=== PATIENT | female | born 1930 | race Caucasian/White ===

== ENCOUNTER 2016-10-10 13:21 | Inpatient (IN) ==
[2016-10-10] MEDS ORDERED: ONDANSETRON 4 MG/2 ML VIAL IV PRN (13:39)
[2016-10-10] MEDS ORDERED: HYDROmorphone 2 MG/1 ML VIAL IV PRN (13:39)
--- NOTE | 2016-10-10 13:49 | Emergency Department Note ---
Emerson Arguelles Gwan, am scribing for, and in the presence of, Jewel Vickers MD 13:42 . Alee Arguelles James D, MD, personally performed the services described in this documentation, ascribed by Penny Norman in my presence, and it is both accurate and complete 348 . 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 States she tripped while walking across the road. Obvious shortening/ rotation noted to left leg. PMS intact. Mode of Arrival: Stretcher Limitations: No Limitations Source: Patient, Family, Old Records Reviewed, RN Notes Reviewed Time Seen by Provider: 10/10/16 13:35 - History of Present Illness HPI Narrative: Patient is a 86 y/o white female, with a hx of dementia, who presents to the ED via EMS with a c/o left hip pain s/p fall today. Family stated that pt went across the street to pick a flower when she slipped and fell. Nurses noted that pt has obvious shortening/rotation of left leg. Patient confirmed that she has pain in her left hip but denies any chest pain, syncope or LOC. While in ED , pt stated that she also has some back pain. Onset (ago): hour(s) Consistency: constant Severity: moderate Date of Last Menstrual Period: hysterectomy Allergies/Adverse Reactions: Allergies Allergy/AdvReac Type Severity Reaction Status Date / Time No Known Allergies Allergy Verified 10/10/16 13:33 Home Medications: Home Medications Medication Instructions Recorded Confirmed Type Aspirin EC Tab 81 mg PO DAILY 10/10/16 10/10/16 History Atenolol [Tenormin] 25 mg PO DAILY 10/10/16 10/10/16 History Memantine [Namenda] 10 mg PO BID 10/10/16 10/10/16 History NIFEdipine [Nifedipine ER] 30 mg PO DAILY 10/10/16 10/10/16 History Pantoprazole Tab [Protonix Tab] 40 mg PO DAILY 10/10/16 10/10/16 History Review of System - Review of System 12 point system: reviewed and no additional remarkable complaints except as stated - Review of System Constitutional: Absent: chills, fever Eyes: Absent: discharge, pain Head/Ears/Nose/Throat: Absent: earache, epistaxis Respiratory: Absent: cough, respiratory distress Cardiovascular: Absent: chest pain, palpitations Musculoskeletal: Present: as per HPI, back pain, other (left hip pain). Absent : arm pain Medical,Surgical,& Family Hx - Medical History Cardio: History of: Hypertension Neurology: History of: Dementia Respiratory: History of: COPD Gastrointestinal: History of: GERD - Surgical History Reproductive Surgeries: Surgical HX of;: Hysterectomy - Social History Smoking Status: Never smoker Frequency of Alcohol Use: None Type of Drug Use: None Exam Physical Examination: GENERAL: This is a white female in no apparent distress. VITAL SIGNS: HEENT: Head is normocephalic and atraumatic. Pupils are equally round and reactive to light. Extraocular movement are intact. Oropharynx is benign with moist mucous membranes. NECK: Neck is soft and supple without tenderness. There are no masses. There is no lymphadenopathy. LUNGS: Lungs are clear to auscultation bilaterally. Chest rises symmetrically. There is no chest wall tenderness. CV: Heart is regular rate and rhythm without murmurs, rubs, or gallops. ABDOMEN: Abdomen is soft, non-tender to palpation. There are no abnormal masses palpated. There is no organomegaly. Bowel sounds are present and active. Shortening and obvious rotation of left hip. SKIN: Skin is warm and dry. No rash. EXTREMITIES: Patient has full range of motion without tenderness. There is no pedal edema. NEUROLOGIC: Awake, alert, and oriented x4. Cranial nerves II through XII are grossly intact. There are no motorsensory deficits. PSYCHIATRIC: Normal affect. Normal mood. Vital Signs: Vital Signs Temperature 98.6 F 10/10/16 13:29 Pulse Rate 76 10/10/16 13:29 Respiratory Rate 18 10/10/16 13:29 Blood Pressure 110/66 10/10/16 13:29 O2 Sat by Pulse Oximetry 93 L 10/10/16 13:29 Course - Consultations Consultation #1: Discussed with Dr. Bennett. Time: 14:14 Consultation #2: Discussed with hospitalist. Patient will be admitted to their service. Time: 14:14 Results - Labs CBC & BMP: 10/10/16 13:50 10/10/16 13:50 Lab Results: I have reviewed the patients labs - EKG EKG results: interpreted by ERMD - Impressions EKG: Normal sinus rhythm with rate of 75, first-degree AV block, right bundle branch block, left anterior fascicular block. - Diagnostic Findings Procedure: Chest x-ray: image reviewed by me (No infiltrates, no pleural effusions.), X-ray: image reviewed by me (Left hip x-ray: Left subcapital femoral neck fracture.) Disposition Clinical Impression: Alzheimer's type dementia, Subcapital fracture of neck of left femur, UTI ( urinary tract infection) Case discussed with: patient, patient's family Disposition: Still a Patient Condition: Stable Time of Disposition: 14:16
[2016-10-10 13:58] LABS: Basophils % 0.3 % (0.0-0.8); Eosinophils # 0.1 10*3/uL (0.0-0.87); Eosinophils % 1.9 % (0.00-10.9); Hematocrit 35.8 VOL% (35.7-47.0); Hemoglobin 12.4 GM/DL (12.0-16.0); Immature Granulocytes % 0.6 %; Immature Granulocytes Absolute 0.04 #; Lymphocytes % 30.1 % (21.3-54.2); Mean Corpuscular HGB Conc 34.6 GM/DL (32-36); Mean Corpuscular Hemoglobin 32 PG (27-34); Mean Corpuscular Volume 93.2 FL (87-102); Mean Platelet Volume 11.1 FL (9.6-12.0); Monocytes # 0.6 10*3/uL (0.11-0.8); Monocytes % 9.7 % (1.7-12.7); Neutrophils # 3.7 10*3/uL (1.4-7.4); Neutrophils % 57.4 % (38.7-73.9); Platelet Count 157 T/CUMM (130-400); Red Blood Count 3.84 MC/CUMM (3.8-5.5); Red Cell Distribution Width 12.7 % (9.3-17.3); White Blood Count 6.5 T/CUMM (4-12)
[2016-10-10 14:06] LABS: Apearance,Urine CLOUDY (Clear); Bilirubin,Urine Negative (Negative); Blood, Urine Small mg/dL (Negative); Glucose,Urine (UA) Negative (Negative); Ketones,Urine Negative (Negative); Mucus,Urine Occasional /LPF (Occasional); Nitrite,Urine Positive (Negative); Protein,Urine 30 MG/DL; RBC,Urine 15 /HPF (0-4); Squamous Epithelial Cell,Urine Occasional /HPF (0-10); Urine Color Yellow (Yellow); Urine Specific Gravity 1.009 (1.001-1.035); Urine Urobilinogen < 2.0 EU/DL (0.2-1.0); WBC,Urine 941 /HPF (0-6)
[2016-10-10 14:07] LABS: PT Patient Result 10.6 SECS; Partial Thromboplastin Time 23.5 SECS (0-40)
--- NOTE | 2016-10-10 14:16 | XRay Report ---
History short of breath Comparison 06/07/2012 The heart is at the upper range normal in size Tiny left base granuloma suspected There is minimal chronic elevation left diaphragm. No congestive failure or confluent infiltrates seen Impression: Stable portable chest PROCEDURE INTERPRETED AT [facility] DEPARTMENT OF RADIOLOGY Final Report Signed by: Dr. Ailyn Cruz
--- NOTE | 2016-10-10 14:19 | XRay Report ---
History is left hip injury and pain AP pelvis and 2 additional views of the left hip obtained There is diffuse demineralization with mild degenerative changes in both hips There is a left femoral neck fracture with superior lateral displacement of the distal fragment proximally 2 cm. Impression: Left femoral neck fracture PROCEDURE INTERPRETED AT [facility] DEPARTMENT OF RADIOLOGY Final Report Signed by: Dr. Ailyn Cruz
[2016-10-10 14:21] LABS: Albumin 3.9 G/DL (3.4-5.0); Bilirubin,Total 0.4 MG/DL (0.2-1.0); Calcium 8.9 MG/DL (8.5-10.1); Osmolality,Calculated 280.4 MOS/KG (273-304); Potassium 4.2 MMOL/L (3.5-5.1); Total Protein 7.2 G/DL (6.4-8.3)
[2016-10-10] MEDS ORDERED: ONDANSETRON 4 MG/2 ML VIAL ONE (14:21)
[2016-10-10] MEDS ORDERED: HYDROmorphone 2 MG/1 ML VIAL ONE (14:22)
--- NOTE | 2016-10-10 14:36 | CT Report ---
History is low back pain status post fall Axial images obtained with 2-D multiplanar reconstruction images also stored and interpreted There are atherosclerotic changes in the abdominal aorta. A 2 cm liver cyst partially visualized There is grade 1/2 spondylolisthesis L4 on L5 with prominent chronic facet changes at this level There are mild degenerative changes throughout the lumbar spine. Disc space height loss and endplate changes are most pronounced at L2-3 No acute lumbar spine fracture is seen. T11-T12 has a diffuse bulge more pronounced far laterally worse on the right. L1 S2 has a mild left lateral bulge L2-3 has a lateral bulge more pronounced in the left surrounded by osteophyte. L3-4 is a diffuse bulge more pronounced far laterally in the right with at least moderate canal and moderate bilateral foraminal stenosis L4-5, there is a diffuse bulge with a suspected more focal broad-based left lateral through far left lateral protrusion. There is facet hypertrophy with severe central canal and moderate left greater than right foraminal stenosis L5-S1 has a mild bulge and facet arthropathy with mild canal and mild bilateral foraminal stenosis Impression: 1. Grade 1-2 spondylolisthesis at L4-5 with chronic facet changes at this level 2. Broad-based left lateral protrusion at L4-5 with severe canal and left foraminal stenosis 3. Other lumbar spondylosis and disc disease with moderate stenoses detailed above The CT exam was performed using one or more of the following dose reduction techniques: Automated exposure control, adjustment of the mA and/or kV according to patient size, or use of iterative reconstruction technique. PROCEDURE INTERPRETED AT [facility] DEPARTMENT OF RADIOLOGY Final Report Signed by: Dr. Ailyn Cruz
--- NOTE | 2016-10-10 14:47 | EKG Report ---
Stationary ECG Study [facility] ER Test Date: 10/10/2016 2:47:31 PM Pat Name: JOYCELYN URBINA Department: Room: Gender: F Supervisor Electronic Testing: : 1930 Requested by: Jewel Curtis Order Number: [id number] Reading MD: DANIS RODRÍGUEZ Intervals Ray Rate: 75 P: 60 DC: 236 QRS: -60 QRSD: 141 T: -3 QT: 432 QTc: 460 Interpretive Statements SINUS RHYTHM WITH PROLONGED DC INTERVAL RIGHT BUNDLE BRANCH BLOCK LEFT ANTERIOR FASCICULAR BLOCK Electronically Signed On 10-14-16 15:28:10 CDT by DANIS RODRÍGUEZ [email or web address]
[2016-10-10] MEDS ORDERED: cefTRIAXone 1,000 MG in SODIUM CHLORIDE 0.9% 100 ML IV STA (15:42)
--- NOTE | 2016-10-10 16:16 | Hospitalist History & Physical ---
<Alvin Thompson - Last Filed: 10/10/16 16:48> Assessment and Plan (1) Alzheimer's type dementia Status: Chronic Assessment and plan: Restart patient's home medications. Current Visit: Yes (2) Subcapital fracture of neck of left femur Status: Acute Assessment and plan: Admit as inpatient. Consult surgery to evaluate. Hold patient NPO. Current Visit: Yes (3) UTI (urinary tract infection) Status: Acute Assessment and plan: IV fluid hydration. Start patient on IV antibiotics empiricially. Obtain urine culture. Current Visit: Yes History of Present Illness Chief complaint: fall History of present illness: Ms. Garcia is a 86 year old white female with a history of hypertension, gerd, dementia, COPD, hysterectomy, gall bladder removal that presented to the ED today for evaluation after a fall. The patient is accompanied by her step daughter who provides the history due to the patient's mental status. The patient was walking across the street to pick a flower but slipped and fell on the gravel in the area. Pt. was unable to get up and was down for about 30 minutes before her found her, per step daughter. Pt. was brought into the ED and xray showed left femoral neck fracture. Pt. also found to have a UTI. Pt. will be admitted to the hospitalist service for further evaluation and treatment. Home Medications Medication Instructions Recorded Confirmed Type Aspirin EC Tab 81 mg PO DAILY 10/10/16 10/10/16 History Atenolol [Tenormin] 25 mg PO DAILY 10/10/16 10/10/16 History Memantine [Namenda] 10 mg PO BID 10/10/16 10/10/16 History NIFEdipine [Nifedipine ER] 30 mg PO DAILY 10/10/16 10/10/16 History Pantoprazole Tab [Protonix Tab] 40 mg PO DAILY 10/10/16 10/10/16 History Allergies Allergy/AdvReac Type Severity Reaction Status Date / Time No Known Allergies Allergy Verified 10/10/16 13:33 Medical,Surgical,& Family Hx - Medical History Cardio: History of: Hypertension Neurology: History of: Dementia Respiratory: History of: COPD Gastrointestinal: History of: GERD - Surgical History Reproductive Surgeries: Surgical HX of;: Hysterectomy - Social History Smoking Status: Never smoker Frequency of Alcohol Use: None Type of Drug Use: None Marital Status: Lives With:: Spouse Functional capacity: independent ambulation ROS unobtainable: due to mental status Exam - Constitutional Vitals: Period Temp Pulse Resp BP Sys/Brito Pulse Ox Last 24 Hr 98.6 F-98.6 F 76-76 18-18 110-110/66-66 93 General appearance: no acute distress, disheveled - Head Head exam: Present: normal inspection, normocephalic - Eye Eye exam: Present: EOMI. Absent: scleral icterus Pupils: Present: RITU. Absent: fixed - Neck Neck exam: Present: normal inspection - Respiratory Respiratory exam: Present: clear to auscultation bilaterally. Absent: wheezes - Cardiovascular Cardiovascular exam: Present: regular rate and rhythm - GI/Abdominal GI/Abdominal exam: Present: normal bowel sounds, soft. Absent: tenderness - Extremities Exam Extremities exam: Present: normal capillary refill, edema. Absent: full ROM - Expanded Left Lower Hip exam: Present: tenderness. Absent: full ROM, external rotation - Neurological Exam Neurological exam: Present: alert, altered - Psychiatric Psychiatric exam: Present: normal affect, normal mood - Skin Skin exam: Present: normal color, warm, dry Results - Labs CBC & BMP: 10/10/16 13:50 10/10/16 13:50 Lab Results: I have reviewed the past 24 hour labs <Bennie Post - Last Filed: 10/13/16 18:44> History of Present Illness History of present illness: Ms. Garcia was found to have a left femur fracture. I, agree with the assessment and plan. I, personally, saw the patient. -Bennie Post MD Exam - Constitutional Vitals: Period Temp Pulse Resp BP Sys/Brito Pulse Ox Last 24 Hr 96.9 F-98.4 F 76-79 16-20 113-152/54-78 94-99 Results - Labs CBC & BMP: 10/13/16 02:43 10/13/16 02:43
[2016-10-10] MEDS ORDERED: ACETAMINOPHEN 325 MG TABLET PO PRN (16:39)
[2016-10-10] MEDS ORDERED: VANCOMYCIN INJ 1,000 MG in SODIUM CHLORIDE 0.9% 250 ML IV ONE (16:45)
[2016-10-10] MEDS ORDERED: MORPHINE 2 MG/1 ML SYRINGE IV ONE (17:29)
[2016-10-10] MEDS ORDERED: MORPHINE 2 MG/1 ML SYRINGE IV PRN (17:32)
--- NOTE | 2016-10-10 17:39 | Orthopedic Consult Note ---
History of Present Illness Chief complaint: Left hip pain History of present illness: Ms. Garcia is a 86 year old female who fell about 11 AM this morning. She crossed the street to pick [employer]. She has not had any prior left hip problems. She denies any other injury. The patient lives at home with her . She generally tends to walk independently and does not use her walker. She has Alzheimer's and the daughter notes that she has had progressive decline over the last 7-8 years. She has been found to have a UTI and Rocephin has been started. Alert. She is very uncomfortable from the hip. She is easily consoled. C-spine nontender. Bilateral upper extremities, right lower extremity without deformity. Skin, sensation motors pulses grossly intact. Left lower extremity shortened and externally rotated. Skin, sensation murmurs pulses are grossly intact to her foot. [place] is painful. X-rays AP pelvis, AP lateral left hip show displaced femoral neck fracture. Impression left displaced femoral neck fracture Plan: Have advised a left hip hemiarthroplasty. Risks and benefits were discussed. All questions were answered. Risks include but not limited to infection, bleeding, anesthesia, dislocation, thromboembolic event, , leg length discrepancy, persistent pain etc. Home Medications Medication Instructions Recorded Confirmed Type Aspirin EC Tab 81 mg PO DAILY 10/10/16 10/10/16 History Atenolol [Tenormin] 25 mg PO DAILY 10/10/16 10/10/16 History Memantine [Namenda] 10 mg PO BID 10/10/16 10/10/16 History NIFEdipine [Nifedipine ER] 30 mg PO DAILY 10/10/16 10/10/16 History Pantoprazole Tab [Protonix Tab] 40 mg PO DAILY 10/10/16 10/10/16 History Allergies Allergy/AdvReac Type Severity Reaction Status Date / Time No Known Allergies Allergy Verified 10/10/16 13:33 ROS unobtainable: due to dementia Medical,Surgical,& Family Hx - Medical History Cardio: History of: Hypertension Neurology: History of: Dementia Respiratory: History of: COPD Gastrointestinal: History of: GERD - Surgical History Reproductive Surgeries: Surgical HX of;: Hysterectomy - Social History Smoking Status: Never smoker Frequency of Alcohol Use: None Type of Drug Use: None Exam - Constitutional Vitals: Period Temp Pulse Resp BP Sys/Brito Pulse Ox Last 24 Hr 98.6 F-98.6 F 74-78 16-20 99-165/66-86 93-99 Results - Labs CBC & BMP: 10/10/16 13:50 10/10/16 13:50 Assessment and Plan (1) Subcapital fracture of neck of left femur Status: Acute Current Visit: Yes Qualifiers: Encounter type: initial encounter Fracture type: closed Qualified Code(s) : S72.012A - Unspecified intracapsular fracture of left femur, initial encounter for closed fracture
[2016-10-10] MEDS: SODIUM CHLORIDE 0.9% 1,000 ML IV SCH (17:50)
[2016-10-10] MEDS: MEMANTINE 10 MG TABLET PO SCH (20:50)
[2016-10-11] MEDS ORDERED: VANCOMYCIN INJ 1,000 MG in SODIUM CHLORIDE 0.9% 250 ML IV ONE (06:00)
[2016-10-11] MEDS: MORPHINE 2 MG/1 ML SYRINGE IV PRN (06:03)
[2016-10-11] MEDS: ONDANSETRON 4 MG/2 ML VIAL IV PRN (06:04)
--- NOTE | 2016-10-11 07:07 | Orthopedic Progress Note ---
Assessment and Plan (1) Subcapital fracture of neck of left femur Status: Acute Current Visit: Yes Qualifiers: Encounter type: initial encounter Fracture type: closed Qualified Code(s) : S72.012A - Unspecified intracapsular fracture of left femur, initial encounter for closed fracture Orthopedics - Subjective Interval history: alert, confused. c/o pain lle shortened and er. nv ok. Left displaced femoral neck fx plan left hip hemiarthroplasty later today. Exam - Constitutional Vitals: Period Temp Pulse Resp BP Sys/Brito Pulse Ox Last 24 Hr 98.0 F-99.2 F 74-91 16-20 99-165/56-86 93-100 Results - Labs CBC & BMP: 10/10/16 13:50 10/10/16 13:50
[2016-10-11 07:25] LABS: Basophils % 0.4 % (0.0-0.8); Eosinophils # 0.3 10*3/uL (0.0-0.87); Eosinophils % 3.7 % (0.00-10.9); Hematocrit 35.8 VOL% (35.7-47.0); Hemoglobin 12.1 GM/DL (12.0-16.0); Immature Granulocytes % 0.3 %; Immature Granulocytes Absolute 0.02 #; Lymphocytes # 2.5 10*3/uL (1.4-4.0); Lymphocytes % 34.6 % (21.3-54.2); Mean Corpuscular HGB Conc 33.8 GM/DL (32-36); Mean Corpuscular Hemoglobin 32 PG (27-34); Mean Corpuscular Volume 93.5 FL (87-102); Mean Platelet Volume 11.1 FL (9.6-12.0); Monocytes # 0.8 10*3/uL (0.11-0.8); Monocytes % 11.2 % (1.7-12.7); Neutrophils # 3.7 10*3/uL (1.4-7.4); Neutrophils % 49.8 % (38.7-73.9); Platelet Count 147 T/CUMM (130-400); Red Blood Count 3.83 MC/CUMM (3.8-5.5); Red Cell Distribution Width 12.5 % (9.3-17.3); White Blood Count 7.4 T/CUMM (4-12)
[2016-10-11 08:07] LABS: Calcium 8.6 MG/DL (8.5-10.1); Magnesium 2.2 MG/DL (1.8-2.4); Osmolality,Calculated 279.3 MOS/KG (273-304); Potassium 4.1 MMOL/L (3.5-5.1); Risk Ratio 3.71; Thyroid Stimulating Hormone 4.02 uIU/ml (0.358-3.74); VLDL CHOLESTEROL 28.6 MG/DL
[2016-10-11] MEDS: ATENOLOL 25 MG TABLET PO SCH (08:21)
[2016-10-11] MEDS: PANTOPRAZOLE 40 MG TABLET PO SCH (08:22)
[2016-10-11] MEDS: MEMANTINE 10 MG TABLET PO SCH ×2 (08:22→20:06)
[2016-10-11] MEDS ORDERED: TRANEXAMIC ACID 1,000 MG/10 ML VIAL IV ONE (09:14)
[2016-10-11] MEDS ORDERED: BACITRACIN OINT 0.9 GM PACK TOP ONE (09:21)
--- NOTE | 2016-10-11 11:03 | Operative Note ---
Date of procedure: 10/11/16 Procedure: DIAGNOSIS: Left displaced femoral neck fracture PROCEDURE: Left cemented hip hemiarthroplasty (CPT # 87617) SURGEON: Donald ANESTHESIA: Spinal PROCEDURE and FINDINGS: After adequate anesthesia was induced, her operative hip was prepped and draped in usual sterile sterile fashion in the lateral decubitus position. Posterior lateral approach was made. Skin and subcutaneous tissue and deep fascia was incised. The gluteus sandy muscle belly was split in line with its fibers. Piriformis, capsule and external rotators were taken down in a single layer for future repair. Templated femoral neck cut was made. Femoral head was removed from the acetabulum. Acetabulum was sized to 48 mm. Femur was prepared with the box osteotome, canal finder and sequential broaches to size 14. Components were trialed. Femoral stem was implanted with modern cementing techniques. Palacos cement, a distal centralizer and cement plug were used. Excess cement was removed. A size 14 LD/ FX Versys stem was used. The femoral head was re-trialed and the final head was selected. A 48 mm unipolar endohead with a +0 neck length was used. Capsule and external rotators were repaired to the greater trochanter with #5 Tycron. Fascia was repaired with 0 Vicryl [id number] sutures. Deep subcutaneous tissue was closed with a 2-0 Vicryl running suture. Superficial subcutaneous tissues were approximated with interrupted 3-0 Vicryl sutures. [place] were used to approximate skin. Bacitracin and a sterile dressing were applied. Surgeon / Physician: Lambert Bennett Jr. Results - Labs CBC & BMP: 10/11/16 06:53 10/11/16 06:53 Discharge Plan - Discharge Medications No Action Memantine [Namenda] 10 mg PO BID Aspirin EC Tab 81 mg PO DAILY Atenolol [Tenormin] 25 mg PO DAILY Pantoprazole Tab [Protonix Tab] 40 mg PO DAILY NIFEdipine [Nifedipine ER] 30 mg PO DAILY - Follow Up or Referral - Forms/Instructions
[2016-10-11] MEDS ORDERED: MAGNESIUM HYDROXIDE SUSP 30 ML UDCUP PO PRN (11:04)
--- NOTE | 2016-10-11 11:15 | Anesthesia Post-Op ---
Anesthesia Post OP - Post Ansesthetic Evaluation Patient seen in post op: Yes Resp: within normal limits CV: within normal limits Mental: within normal limits Temp: within normal limits [id number]: within normal limits Nausea and Vomiting: within normal limits Pain: within normal limits
[2016-10-11] MEDS ORDERED: MIDAZOLAM 2 MG/2 ML VIAL ONE (11:20)
[2016-10-11] MEDS ORDERED: fentaNYL 100 MCG/2 ML VIAL ONE (11:20)
[2016-10-11] MEDS ORDERED: ACETAMINOPHEN 1,000 MG/100 ML VIAL IV ONE (11:21)
[2016-10-11] MEDS ORDERED: KETAMINE 500 MG/10 ML VIAL ONE (11:21)
[2016-10-11] MEDS ORDERED: LACTATED RINGERS 1,000 ML IV ONE (11:21)
[2016-10-11] MEDS: LACTATED RINGERS 1,000 ML IV SCH (11:35)
--- NOTE | 2016-10-11 12:46 | XRay Report ---
XR hip 1V LT Indication: Joint replacement (left hip) Comparison: Left hip x-ray dated October 10, 2016 Technique: Single frontal view of the left hip Findings: Status post total left hip arthroplasty. No evidence of immediate hardware failure. Superficial skin alexsandra overlie the hip. Subcutaneous and joint space air noted which is likely postoperative. IMPRESSION: As above. PROCEDURE INTERPRETED AT [facility] DEPARTMENT OF RADIOLOGY Final Report Signed by: Dr Carlos Hernadez
[2016-10-11] MEDS: KETOROLAC 15 MG/1 ML VIAL IV SCH ×3 (13:13→22:45)
--- NOTE | 2016-10-11 13:58 | Hospitalist Progress Note ---
Hospitalist: Subjective Interval history: Pt seen this am around 7:40am. Pt reports a dry cough. She denies any chest pain or palpitations. No nausea or vomiting. She was NPO for surgery. Exam - Constitutional Vitals: Period Temp Pulse Resp BP Sys/Brito Pulse Ox Last 24 Hr 97.7 F-99.2 F 53-91 14-20 91-165/46-80 95-100 Exam: Elderly female, lying in the hospital bed in NAD RRR no M CTAB nonlabored, diminished Soft, NT, ND, hypoactive bowel sounds Warm no c/c/e Results - Labs CBC & BMP: 10/11/16 06:53 10/11/16 06:53 - Impressions (1) Subcapital fracture of neck of left femur- s/p repair 10/11 Status: Acute Assessment and plan: Orthopedics is following. Cont routine post-op care. Recheck CBC in am to monitor H and H. Check Vitamin D level as may benefit from Ca/Vit D supplementation. 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 Current Visit: Yes (3) UTI (urinary tract infection)/ cystits due to GNR Status: Acute Assessment and plan: IV fluid hydration. Cont IV Rocephin. F/U urine culture. Current Visit: Yes (4) Acute renal failure likely due to dehydration - improved with IVF - Recheck RFP in am DVT prophylaxis- Arixtra D/W pt and nurse and all questions answered.
[2016-10-11] MEDS: ACETAMINOPHEN 500 MG TABLET PO SCH ×2 (14:22→20:06)
--- NOTE | 2016-10-11 15:49 | Orthopedic Progress Note ---
Assessment and Plan (1) Subcapital fracture of neck of left femur Status: Acute Current Visit: Yes Qualifiers: Encounter type: initial encounter Fracture type: closed Qualified Code(s) : S72.012A - Unspecified intracapsular fracture of left femur, initial encounter for closed fracture Orthopedics - Subjective Interval history: Alert. Confused. Appears more comfortable. Dressing clean, dry and intact. Left lower extremities neurovascularly unchanged. Plan: Mobilize per protocol. Exam - Constitutional Vitals: Period Temp Pulse Resp BP Sys/Brito Pulse Ox Last 24 Hr 97.7 F-99.2 F 53-91 14-18 91-165/32-80 95-100 Results - Labs CBC & BMP: 10/11/16 06:53 10/11/16 06:53
[2016-10-11] MEDS: cefTRIAXone 1,000 MG in SODIUM CHLORIDE 0.9% 100 ML IV SCH (16:55)
[2016-10-11] MEDS: DOCUSATE SODIUM 100 MG CAPSULE PO SCH (20:06)
[2016-10-11] MEDS: SODIUM CHLORIDE 0.9% 1,000 ML IV SCH (22:47)
[2016-10-12] MEDS: MORPHINE 2 MG/1 ML SYRINGE IV PRN (01:30)
[2016-10-12] MEDS: ACETAMINOPHEN 500 MG TABLET PO SCH ×2 (02:47→09:13)
[2016-10-12] MEDS: LACTATED RINGERS 1,000 ML IV SCH (03:49)
[2016-10-12] MEDS: FONDAPARINUX 2.5 MG/0.5 ML SYRINGE SUBCUT SCH (05:46)
[2016-10-12] MEDS: KETOROLAC 15 MG/1 ML VIAL IV SCH (05:46)
[2016-10-12 06:49] LABS: Basophils % 0.1 % (0.0-0.8); Eosinophils # 0.3 10*3/uL (0.0-0.87); Eosinophils % 3.8 % (0.00-10.9); Hematocrit 30.5 VOL% (35.7-47.0); Hemoglobin 10.2 GM/DL (12.0-16.0); Immature Granulocytes % 0.3 %; Immature Granulocytes Absolute 0.02 #; Lymphocytes # 1.9 10*3/uL (1.4-4.0); Lymphocytes % 26.2 % (21.3-54.2); Mean Corpuscular HGB Conc 33.4 GM/DL (32-36); Mean Corpuscular Hemoglobin 31 PG (27-34); Mean Corpuscular Volume 93.3 FL (87-102); Mean Platelet Volume 11.9 FL (9.6-12.0); Monocytes # 0.6 10*3/uL (0.11-0.8); Neutrophils # 4.3 10*3/uL (1.4-7.4); Neutrophils % 60.6 % (38.7-73.9); Red Blood Count 3.27 MC/CUMM (3.8-5.5); Red Cell Distribution Width 12.5 % (9.3-17.3); White Blood Count 7.1 T/CUMM (4-12)
[2016-10-12 07:04] LABS: Platelet Count 114 T/CUMM (130-400)
[2016-10-12 07:18] LABS: Calcium 8.3 MG/DL (8.5-10.1); Osmolality,Calculated 281.1 MOS/KG (273-304); Potassium 3.9 MMOL/L (3.5-5.1)
[2016-10-12 07:31] LABS: Band Neutrophils 2 % (0-10); Eosinophils 4 % (0-10); Hypochromasia Slight; Lymphocytes 23 % (20-55); Nucleated Red Blood Cells 1 (0-5); Platelet Estimate Decreased; Segmented Neutrophils 62 % (50-85); Total Cells Counted 100
[2016-10-12] MEDS: ATENOLOL 25 MG TABLET PO SCH (09:13)
[2016-10-12] MEDS: DOCUSATE SODIUM 100 MG CAPSULE PO SCH ×2 (09:13→20:52)
[2016-10-12] MEDS: PANTOPRAZOLE 40 MG TABLET PO SCH (09:13)
[2016-10-12] MEDS: MEMANTINE 10 MG TABLET PO SCH ×2 (09:13→20:52)
--- NOTE | 2016-10-12 12:23 | Hospitalist Progress Note ---
Hospitalist: Subjective Interval history: Pt denies any pain at this time. Tolerating some po (25% of breakfast). Denies SOB. No nausea or vomiting. no BM yet. Exam - Constitutional Vitals: Period Temp Pulse Resp BP Sys/Brito Pulse Ox Last 24 Hr 97.0 F-98.0 F 61-78 14-18 92-125/32-64 91-100 Exam: Elderly female, lying in the hospital bed in NAD; Awake, alert RRR no M CTAB nonlabored, diminished Soft, NT, ND, hypoactive bowel sounds Warm no c/c/e; left leg elevated. Good cap refill. Sensation appears to be grossly intact Results - Labs CBC & BMP: 10/12/16 05:22 10/12/16 05:22 - Impressions (1) Subcapital fracture of neck of left femur- s/p repair 10/11 Status: Acute Assessment and plan: Orthopedics is following. Cont routine post-op care. Serial H and H. Vitamin D level low at 16 so will start Ca/Vit D supplementation. 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 Current Visit: Yes (3) E Coli UTI (urinary tract infection)/ cystits- not catheter associated, present on admission Status: Acute Assessment and plan: Cont IV Rocephin. Change to nitrofurantoin once oral intake improves. Current Visit: Yes (4) Acute renal failure likely due to dehydration - improved with IVF Creatinine went from 1.5 to 1.1 - Watch closely with Celebrex. DVT prophylaxis- Arixtra D/W pt and nurse and all questions answered. Pt in room alone. Will update family when available.
--- NOTE | 2016-10-12 16:26 | Orthopedic Progress Note ---
Assessment and Plan (1) Subcapital fracture of neck of left femur Status: Acute Current Visit: Yes Qualifiers: Encounter type: initial encounter Fracture type: closed Qualified Code(s) : S72.012A - Unspecified intracapsular fracture of left femur, initial encounter for closed fracture Orthopedics - Subjective Interval history: comfortable. baseline mental state. dressing dry. nv ok. mobilize with therapy. d/c planning Exam - Constitutional Vitals: Period Temp Pulse Resp BP Sys/Brito Pulse Ox Last 24 Hr 97.0 F-98.1 F 67-78 16-19 104-125/52-64 91-97 Results - Labs CBC & BMP: 10/12/16 05:22 10/12/16 05:22
[2016-10-12] MEDS: CELECOXIB 200 MG CAPSULE PO SCH (17:01)
[2016-10-12] MEDS: cefTRIAXone 1,000 MG in SODIUM CHLORIDE 0.9% 100 ML IV SCH (17:01)
[2016-10-12] MEDS: ONDANSETRON 4 MG/2 ML VIAL IV PRN (17:15)
--- NOTE | 2016-10-12 18:16 | Pathology Report from [facility] ---
[facility] – [place] ACCESSION # : [id number] PATIENT NAME : Joycelyn Urbina ORDERING DR : GIULIANA BLAIR MD CLINICAL HX: Subcapital fracture of neck of left femur POST-OP DX: Same SPECIMEN INFO: Left hip bone and tissue GROSS DESCRIPTION: The specimen is received in formalin labeled with the patients name and consists of an aggregate of bone, cartilage and adipose tissue measuring 11.6 x 14.8 cm. The articular surfaces are focally degenerative with areas of subchondral eburnation measuring less than 0.3 cm. Activity Specialist sections submitted in one cassette following decalcification. DIAGNOSIS FOR JOYCELYN URBINA: LEFT HIP BONE AND TISSUE: Trabecular bone with hemorrhagic marrow consistent with clinical history of fracture. No evidence of malignancy. Pancytokeratin and CD138 immunostains negative COLLECTED DATE: 10/11/2016 [facility] REPORT DATE: 10/12/2016 ELECTRONICALLY SIGNED BY: Annmarie Camacho III, M.D. 10/12/2016 - 13:39:27 [facility]en
[2016-10-12] MEDS: CALCIUM (CARBONATE)/VITAMIN D 600 MG-400 UNIT TABLET PO SCH (20:52)
[2016-10-13] MEDS: FONDAPARINUX 2.5 MG/0.5 ML SYRINGE SUBCUT SCH (06:16)
[2016-10-13] MEDS ORDERED: BISACODYL 10 MG SUPP RECTAL ONE (07:57)
--- NOTE | 2016-10-13 07:59 | Hospitalist Progress Note ---
Hospitalist: Subjective Interval history: Tolerating some po. No fever. No cp or SOB. No BM since admission. Pt awake, alert and oriented to person Exam - Constitutional Vitals: Period Temp Pulse Resp BP Sys/Brito Pulse Ox Last 24 Hr 96.9 F-98.1 F 70-79 16-20 104-152/52-78 94-97 General appearance: normal weight Exam: Elderly female, lying in the hospital bed in NAD; Awake, alert RRR no M CTAB nonlabored, diminished Soft, NT, ND, hypoactive bowel sounds Warm no c/c/e; left leg elevated. Good cap refill. Sensation appears to be grossly intact - Head Head exam: Present: normal inspection Results - Labs CBC & BMP: 10/13/16 02:43 10/13/16 02:43 - Impressions (1) Subcapital fracture of neck of left femur- s/p repair 10/11 Status: Acute Assessment and plan: Orthopedics is following. Cont routine post-op care. Serial H and H. Cont Ca/ Vit D supplementation. Current Visit: Yes (2) Vitamin D deficiency - cont supplementation (3) Dementia presumed due to Alzheimer's disease Status: Chronic Assessment and plan: Cont home medications. Current Visit: Yes (4) E Coli UTI (urinary tract infection)/ cystits- not catheter associated, present on admission Status: Acute Assessment and plan: Cont IV Rocephin. Change to oral antibiotics once oral intake improves. Current Visit: Yes (5) Acute renal failure likely due to dehydration- resolved - improved with IVF Creatinine went from 1.5 to 0.9 - Watch closely with Celebrex. (6) Constipation - on laxatives. Give Dulcolax suppository DVT prophylaxis- Arixtra D/C Wu D/W pt, nursing staff, and case operator and all questions answered. Pt in room alone. I will be away several days. One of my associates will follow in my absence.
[2016-10-13] MEDS: CALCIUM (CARBONATE)/VITAMIN D 600 MG-400 UNIT TABLET PO SCH ×2 (09:01→21:53)
[2016-10-13] MEDS: MEMANTINE 10 MG TABLET PO SCH ×2 (09:01→21:53)
[2016-10-13] MEDS: DOCUSATE SODIUM 100 MG CAPSULE PO SCH ×2 (09:01→21:53)
[2016-10-13] MEDS: ATENOLOL 25 MG TABLET PO SCH (09:01)
[2016-10-13] MEDS: CELECOXIB 200 MG CAPSULE PO SCH (09:01)
[2016-10-13] MEDS: PANTOPRAZOLE 40 MG TABLET PO SCH (09:01)
--- NOTE | 2016-10-13 10:40 | Orthopedic Progress Note ---
Assessment and Plan (1) Subcapital fracture of neck of left femur Status: Acute Current Visit: Yes Qualifiers: Encounter type: initial encounter Fracture type: closed Qualified Code(s) : S72.012A - Unspecified intracapsular fracture of left femur, initial encounter for closed fracture Orthopedics - Subjective Interval history: Alert. Comfortable. At usual mental baseline. Dressing clean, dry and intact. Left lower extremity neurovascularly unchanged. Plan: She is to be discharged to swing bed tomorrow. Her Wu can be removed. She is to continue physical therapy. Exam - Constitutional Vitals: Period Temp Pulse Resp BP Sys/Brito Pulse Ox Last 24 Hr 96.9 F-98.1 F 70-79 16-20 104-152/52-78 94-97 Results - Labs CBC & BMP: 10/13/16 02:43 10/13/16 02:43
[2016-10-13] MEDS: ONDANSETRON 4 MG/2 ML VIAL IV PRN (12:40)
[2016-10-13] MEDS ORDERED: TUBERCULIN SKIN TEST 0.1 ML SYRINGE INTRADERM ONE (14:50)
--- NOTE | 2016-10-13 14:53 | Case Mgmt Physician Query Form ---
TB Signs and Symptoms Screening ([place]) INSTRUCTIONS: To be completed annually on residents/staff with a significant Tuberculin Skin Test (TST) upon admission/hire or a prior significant TST. To be completed on all staff at hire. Please respond to each listed symptom with an (X) in either the "YES" or "NO" box. Do you currently have any of the following symptoms: YES NO ( ) (x ) A cough If yes, is it: ( ) Productive ( ) Non- productive ( ) ( x) Hemoptysis (spitting up blood) ( ) (x ) Chest pains ( ) ( ) Weight Loss- unknown ( ) (x ) Fever ( ) ( x) Night Sweats ( x) ( ) Weakness- s/p fall ( x) ( ) Loss of Appetite- mild post surgically ( ) (x ) Difficulty Breathing If you answered YES" to any of the above questions, how long have symptoms been present? Comments: If you have any questions, please contact me. Thank you, Lorena Oropeza RN, Office : [phone] Email : [email or web address]
[2016-10-13] MEDS: cefTRIAXone 1,000 MG in SODIUM CHLORIDE 0.9% 100 ML IV SCH (18:20)
[2016-10-14] MEDS: FONDAPARINUX 2.5 MG/0.5 ML SYRINGE SUBCUT SCH (06:53)
--- NOTE | 2016-10-14 07:30 | Orthopedic Progress Note ---
Assessment and Plan (1) Subcapital fracture of neck of left femur Status: Acute Current Visit: Yes Qualifiers: Encounter type: initial encounter Fracture type: closed Qualified Code(s) : S72.012A - Unspecified intracapsular fracture of left femur, initial encounter for closed fracture Orthopedics - Subjective Interval history: No new complaints. Dressing clean, dry and intact. Left lower extremity neurovascularly unchanged. Plan: May be discharged to swing bed at any time. Posterior hip precautions for 3 months. Daily dry dressing changes. Arrange for walker and bedside commode for home use. Wear AISHWARYA hose for 1 month. Follow-up appointment in 4 weeks. Discontinue alexsandra and Steri-Strip wound on October 22, 2016. Prescription for Closplint 5 with 20 tablets was written. Stop Arixtra when discharged from swing bed. Exam - Constitutional Vitals: Period Temp Pulse Resp BP Sys/Brito Pulse Ox Last 24 Hr 96.9 F-98.7 F 20-92 18-20 121-142/58-70 95-99 Results - Labs CBC & BMP: 10/13/16 02:43 10/13/16 02:43
[2016-10-14] MEDS: ATENOLOL 25 MG TABLET PO SCH (09:16)
[2016-10-14] MEDS: MEMANTINE 10 MG TABLET PO SCH (09:16)
[2016-10-14] MEDS: DOCUSATE SODIUM 100 MG CAPSULE PO SCH (09:16)
[2016-10-14] MEDS: PANTOPRAZOLE 40 MG TABLET PO SCH (09:16)
[2016-10-14] MEDS: CELECOXIB 200 MG CAPSULE PO SCH (09:16)
[2016-10-14] MEDS: CALCIUM (CARBONATE)/VITAMIN D 600 MG-400 UNIT TABLET PO SCH (09:16)
--- NOTE | 2016-10-14 10:25 | Discharge Summary ---
Hospital Course - Hospital Course Hospital Course: Mr. Chacon is a 86 year old white female with a history of hypertension, GERD, dementia, COPD, hysterectomy, and gallbladder removed a presented to the ED on for evaluation after a fall. The patient was attempting to pick of lower slipped and fell on gravel that was in the area. Patient was completely mobile after the fall and was then for about 30 minutes before her found her. Patient was transported to the ED via EMS. On evaluation in the ED x-ray showed a left femoral neck fracture. Patient was also noted to have a UTI. Patient was admitted to the hospitalist service for further evaluation and treatment. Pt was treated with IV fluid hydration and IV Rocephin. Pt underwent a left cemented hip hemiarthroplasty on 10/11. Pt. tolerated the procedure well. Physical therapy began to work with patient. During stay, pt did see a drop in 10.2/30.5 but remained asymptomatic and did not require transfusion. Patient's condition continued to improve. She is to adhere to posterior hip precautions for 3 months and have daily dry dressing changes performed. She is also to follow up in 4 weeks. Today the patient is able to be discharged to a swing bed. Diagnosis - Discharge Diagnosis (1) Alzheimer's type dementia Status: Chronic (2) Subcapital fracture of neck of left femur Status: Acute (3) UTI (urinary tract infection) Status: Acute Specialty Discharge - Follow Up or Referrals Follow up with: Lambert Bennett Jr., MD [Physician] - 11/15/16 8:00 am Discharge Plan - Discharge Medications No Action Memantine [Namenda] 10 mg PO BID Aspirin EC Tab 81 mg PO DAILY Atenolol [Tenormin] 25 mg PO DAILY Pantoprazole Tab [Protonix Tab] 40 mg PO DAILY NIFEdipine [Nifedipine ER] 30 mg PO DAILY - Follow Up or Referral Follow Up: Lambert Bennett Jr., MD [Physician] - 11/15/16 8:00 am - Forms/Instructions Exam - Constitutional Vitals: Period Temp Pulse Resp BP Sys/Brito Pulse Ox Last 24 Hr 96.9 F-98.7 F 20-92 18-20 121-148/58-70 95-99 DS: Provider Date of admission: 10/10/16 15:20 Primary care physician: . No PCP Attending physician on admission: Bennie Post MD Consults: 10/10/16 16:35 Consult to Physician [CONS] Routine Comment: Consulting Provider: Lambert Bennett Jr. Consulting Provider Notified: Yes When should Consulting Provider be notified: Now Person Notified: leslye called Date Notified: 10/11/16 Time Notified: 08:16 Consult Notification Comment: moose called at [address] know to call back 10/10/16 16:39 Consult to Case Mgmt/Social Srvs [CONS] Routine Reason for Case Mgmt/Social Srvs: Home Health 10/11/16 11:04 Consult to Case Mgmt/Social Srvs [CONS] Routine Reason for Case Mgmt/Social Srvs: Rehab Home Health Equipment Consult Comment: Bedside Commode, CPM, Walker Consult to Occupational Therapy [CONS] Routine Reason for Occupational Therapy: Evaluate and Treat Consult Comment: ADL's Consult to Physical Therapy [CONS] Routine Reason for Physical Therapy: Evaluate and Treat Gait Training Consult Comment: wbat, hip precautions Discharging clinician: Alvin Thompson NP
--- NOTE | 2016-10-14 10:42 | Discharge Summary ---
Hospital Course - Hospital Course Hospital Course: Mr. Chacon is a 86 year old white female with a history of hypertension, GERD, dementia, COPD, hysterectomy, and gallbladder removed a presented to the ED on for evaluation after a fall. The patient was attempting to pick of lower slipped and fell on gravel that was in the area. Patient was completely mobile after the fall and was then for about 30 minutes before her found her. Patient was transported to the ED via EMS. On evaluation in the ED x-ray showed a left femoral neck fracture. Patient was also noted to have a UTI. Patient was admitted to the hospitalist service for further evaluation and treatment. Pt was treated with IV fluid hydration and IV Rocephin. Pt underwent a left cemented hip hemiarthroplasty on 10/11. Pt. tolerated the procedure well. Physical therapy began to work with patient. During stay, pt did see a drop in 10.2/30.5 but remained asymptomatic and did not require transfusion. Patient's condition continued to improve. She is to adhere to posterior hip precautions for 3 months and have daily dry dressing changes performed. She is also to follow up in 4 weeks. Today the patient is able to be discharged to a swing bed. Specialty Discharge - Follow Up or Referrals Follow up with: Lambert Bennett Jr., MD [Physician] - 11/15/16 8:00 am Discharge Plan - Discharge Medications New Apixaban [Eliquis] 2.5 mg PO BID #60 tablet Calcium (Carb)/Vit D 600-400 [Caltrate 600 + D] 1 tablet PO BID #60 tablet Celecoxib [Celebrex] 200 mg PO DAILY #30 capsule HYDROcodone/ACETAMIN 5-325 [Gordon 5-325] 1 tablet PO Q4H PRN #30 tablet PRN Reason: Pain Mild (1-3) Magnesium Hydroxide Susp [Milk of Magnesia] 30 ml PO Q6H PRN #1 PRN Reason: Constipation Acetaminophen Tab [Tylenol Tab] 650 mg PO Q4H PRN #30 tablet PRN Reason: Fever, Headache, Mild Pain Docusate Sodium Cap [Colace Cap] 100 mg PO BID #60 capsule Continue Aspirin EC Tab 81 mg PO DAILY Atenolol [Tenormin] 25 mg PO DAILY #30 NIFEdipine [Nifedipine ER] 30 mg PO DAILY #30 Pantoprazole Tab [Protonix Tab] 40 mg PO DAILY #30 Memantine [Namenda] 10 mg PO BID #60 - Follow Up or Referral Follow Up: Lambert Bennett Jr., MD [Physician] - 11/15/16 8:00 am - Forms/Instructions Exam - Constitutional Vitals: Period Temp Pulse Resp BP Sys/Brito Pulse Ox Last 24 Hr 96.9 F-98.7 F 20-92 18-20 121-148/58-70 95-99 DS: Provider Date of admission: 10/10/16 15:20 Primary care physician: . No PCP Attending physician on admission: Bennie Post MD Consults: 10/10/16 16:35 Consult to Physician [CONS] Routine Comment: Consulting Provider: Lambert Bennett Jr. Consulting Provider Notified: Yes When should Consulting Provider be notified: Now Person Notified: leslye called Date Notified: 10/11/16 Time Notified: 08:16 Consult Notification Comment: moose called at [address] know to call back 10/10/16 16:39 Consult to Case Mgmt/Social Srvs [CONS] Routine Reason for Case Mgmt/Social Srvs: Home Health 10/11/16 11:04 Consult to Case Mgmt/Social Srvs [CONS] Routine Reason for Case Mgmt/Social Srvs: Rehab Home Health Equipment Consult Comment: Bedside Commode, CPM, Walker Consult to Occupational Therapy [CONS] Routine Reason for Occupational Therapy: Evaluate and Treat Consult Comment: ADL's Consult to Physical Therapy [CONS] Routine Reason for Physical Therapy: Evaluate and Treat Gait Training Consult Comment: wbat, hip precautions Discharging clinician: Vineet Rojas MD
[2016-10-14 11:46] VITALS: BP 144/69
[2016-10-14] MEDS ORDERED: APIXABAN 2.5 MG TABLET PO SCH (21:00)
== END 2016-10-14 15:00 | DRG 470 ==
LOC: EDUNIT# → EDBD → N.ED 13:21 → N.EDINP 15:20 → SUATTDRO 15:20 → N.3E 15:39
PROVIDERS: ADMIT Family Medicine; ATTEND Hospitalist